=== PATIENT | male | born 1950 | race Caucasian/White ===

== ENCOUNTER 2019-06-28 | Emergency (ER) | payer MEDICARE, OTHER ==
[2019-06-28] MEDS ORDERED: TAMSULOSIN HCL0.4 MG PO (11:31)
[2019-06-28] MEDS ORDERED: OXYBUTYNIN CHLO10 MG PO (11:32)
[2019-06-28] MEDS ORDERED: NAPROXEN500 MG PO (11:38)
== END 2019-06-28 11:45 | disposition home or self-care (01) ==
DX: M76.9 Unspecified enthesopathy, lower limb, excluding foot (principal)